=== PATIENT | female | born 1970 | race American Indian/Alaskan Native ===

== ENCOUNTER 2016-12-30 12:37 | Emergency (ER) | payer MEDICAID ==
[2016-12-30] MEDS ORDERED: NACL 0.9% 1000 ML 1,000 ML IV ONE (16:34)
[2016-12-30] MEDS ORDERED: BENADRYL IV ONE (16:34)
[2016-12-30] MEDS ORDERED: PERCOCET 5/325 PO ONE (16:34)
[2016-12-30] MEDS ORDERED: REGLAN IV ONE (16:34)
--- NOTE | 2016-12-30 16:40 | Emergency Department Report ---
ED Headache HPI - General Chief Complaint: Headache Stated Complaint: HEADACHE Time Seen by Provider: 12/30/16 16:09 Source: patient Exam Limitations: no limitations - History of Present Illness Initial Comments: Patient is a 46-year-old female with a history of morbid obesity, hypertension, and asthma. Patient presents to the ER complaining of the worst headache of her life, 10 out of 10 pain, occurring in the frontal area of her head with radiation to the back. He also reports hypertension patient takes lisinopril and amlodipine daily, patient has not missed any doses. Associated photophobia and nausea. She denies any history of migraines. Otherwise no fevers, chills, nausea, vomiting, chest pain, shortness of breath, abdominal pain, trauma, falls , sick contacts, or travel. Allergies/Adverse Reactions: Allergies Penicillins Allergy (Verified 07/09/16 07:32) Unknown Home Medications: Ambulatory Orders ALBUTEROL Inhaler [ProAir HFA Inhaler] 1 puff INHALATION PRN PRN 03/01/14 Cetirizine HCl [ZyrTEC] 10 mg PO DAILY 03/01/14 Cholecalciferol (Vitamin D3) [Vitamin D3] 10,000 unit PO 1XW 03/01/14 Lisinopril/Hydrochlorothiazide [Zestoretic 20-12.5 mg] 1 tab PO DAILY 03/01/14 amLODIPine [Norvasc] 5 mg PO DAILY 03/01/14 Fluticasone/Salmeterol [Advair Diskus 250-50 mcg] 1 inh INHALATION BID 01/06/15 Cyclobenzaprine [Flexeril 10 MG TAB] 10 mg PO Q8H PRN #21 tablet 04/08/15 Lisinopril/Hydrochlorothiazide [Zestoretic 20-25 mg] 1 each PO QDAY #30 tablet 04/08/15 amLODIPine [Norvasc] 10 mg PO DAILY #30 tab 04/08/15 Colchicine 0.6 mg PO ONCE #3 tablet 12/31/15 HYDROcodone/APAP 5-325 [Catron 5/325] 1 each PO Q6HR PRN #12 tablet 12/31/15 Ibuprofen [Motrin] 800 mg PO Q8HR PRN #15 tablet 07/09/16 ED Review of Systems ROS: Stated complaint: HEADACHE Other details as noted in HPI Comment: All other systems reviewed and negative ED Past Medical Hx - Past Medical History Hx Hypertension: Yes Hx Congestive Heart Failure: Yes Hx Arthritis: Yes Hx Asthma: Yes Hx COPD: No Hx HIV: No Additional medical history: Obesity - Surgical History Additional Surgical History: lap band, trigger finger repair,carpal tunnel - Social History Smoking Status: Never Smoker Substance Use Type: None - Medications Home Medications: Home Medications Medication Instructions Recorded Confirmed Last Taken Type ALBUTEROL Inhaler [ProAir HFA 1 puff INHALATION PRN PRN 03/01/14 04/07/15 History Inhaler] Cetirizine HCl [ZyrTEC] 10 mg PO DAILY 03/01/14 04/07/15 12/17/14 History Cholecalciferol (Vitamin D3) 10,000 unit PO 1XW 03/01/14 04/07/15 12/17/14 History [Vitamin D3] Lisinopril/Hydrochlorothiazide 1 tab PO DAILY 03/01/14 04/07/15 04/07/15 10:00 History [Zestoretic 20-12.5 mg] amLODIPine [Norvasc] 5 mg PO DAILY 03/01/14 04/07/15 04/07/15 10:00 History Fluticasone/Salmeterol [Advair 1 inh INHALATION BID 01/06/15 04/07/15 12/30/14 History Diskus 250-50 mcg] Cyclobenzaprine [Flexeril 10 MG 10 mg PO Q8H PRN #21 tablet 04/08/15 Unknown Rx TAB] Lisinopril/Hydrochlorothiazide 1 each PO QDAY #30 tablet 04/08/15 Unknown Rx [Zestoretic 20-25 mg] amLODIPine [Norvasc] 10 mg PO DAILY #30 tab 04/08/15 Unknown Rx Colchicine 0.6 mg PO ONCE #3 tablet 12/31/15 Unknown Rx HYDROcodone/APAP 5-325 [Catron 1 each PO Q6HR PRN #12 tablet 12/31/15 Unknown Rx 5/325] Ibuprofen [Motrin] 800 mg PO Q8HR PRN #15 tablet 07/09/16 Unknown Rx ED Physical Exam - General Limitations: No Limitations General appearance: alert, in no apparent distress - Head Head exam: Present: atraumatic, normocephalic - Eye Eye exam: Present: normal appearance, PERRL, EOMI. Absent: conjunctival injection, nystagmus Pupils: Present: normal accommodation. Absent: unequal - ENT ENT exam: Present: mucous membranes moist - Neck Neck exam: Present: normal inspection, tenderness (left paracervical ), other ( No meningeal signs) - Respiratory Respiratory exam: Present: normal lung sounds bilaterally. Absent: respiratory distress - Cardiovascular Cardiovascular Exam: Present: regular rate, normal rhythm. Absent: systolic murmur, diastolic murmur, rubs, gallop - GI/Abdominal GI/Abdominal exam: Present: soft, normal bowel sounds - Back Exam Back exam: Present: normal inspection - Neurological Exam Neurological exam: Present: alert, oriented X3, other (negative kernig and brudzinski) - Psychiatric Psychiatric exam: Present: normal affect, normal mood - Skin Skin exam: Present: warm, dry, intact, normal color. Absent: rash ED Course Vital Signs 12/30/16 12/30/16 12/30/16 12:44 14:31 14:35 Temperature 100.7 F H Pulse Rate 128 H 107 H Respiratory 24 26 H Rate Blood Pressure 228/120 Blood Pressure 198/117 [Right] O2 Sat by Pulse 98 96 96 Oximetry 12/30/16 12/30/16 12/30/16 15:24 17:00 18:00 Temperature Pulse Rate 81 104 H 92 H Respiratory 20 18 18 Rate Blood Pressure Blood Pressure 153/96 183/105 171/53 [Right] O2 Sat by Pulse 100 99 96 Oximetry 12/30/16 12/30/16 12/30/16 19:00 20:00 21:00 Temperature Pulse Rate 75 81 87 Respiratory 18 20 24 Rate Blood Pressure Blood Pressure 174/84 146/83 195/86 [Right] O2 Sat by Pulse 96 100 98 Oximetry 12/30/16 21:30 Temperature 100.1 F H Pulse Rate 84 Respiratory 18 Rate Blood Pressure Blood Pressure 171/93 [Right] O2 Sat by Pulse 100 Oximetry ED Medical Decision Making - Lab Data Result diagrams: 12/30/16 16:51 12/30/16 16:51 - EKG Data -: EKG Interpreted by Ri EKG shows normal: axis (normal), intervals (normal), QRS complexes (normal), ST- T waves (No ST/T changes, no STEMI) Rate: tachycardia - Medical Decision Making Patient reevaluated after medications 2 tabs of percocet, reglan, benadryl, and IV fluids patient reports no improvement. her BP is now 171/91,. Pt is still reporting a frontal SMALL and fever of 100.1. Pt is approximately 500 lbs and cannot use the CT scanner here due to her habitus. If patient requires a lumbar puncture I will not be able to perfome the procedure due to her habitus. Pt given dilaudid 1mg, valium 5mg without relief Pt attempted to ambulate, patient has unsteady gait due to dizziness Case discussed with Dr Urban, ER attending at [facility] at 0015. Will accept ER to ER transfer where she will be able to receive a CT and further imaging and procedures if warranted. Critical care attestation.: If time is entered above; I have spent that time in minutes in the direct care of this critically ill patient, excluding procedure time. ED Disposition Clinical Impression: Headache, Hypertension, Dizziness, Gait instability Disposition: DC/TX ANOTHER TYPE HEALTHCARE Is pt being admited?: No Does the pt Need Aspirin: No Condition: Serious Additional Instructions: Pt to be transferred to [facility]
[2016-12-30 17:12] LABS: Eosinophils % (Auto) 0.1 % (0.0-4.3); Hematocrit 44.2 % (30.3-42.9); Hemoglobin 14.7 gm/dl (10.1-14.3); Mean Corpuscular HGB Conc 33 % (30-34); Mean Corpuscular Volume 76 fl (79-97); Platelet Count 346 K/mm3 (140-440); Red Blood Count 5.84 M/mm3 (3.65-5.03); Red Cell Distribution Width 14.3 % (13.2-15.2); White Blood Count 11.3 K/mm3 (4.5-11.0)
[2016-12-30 17:19] LABS: Mean Corpuscular Hemoglobin 25 pg (28-32)
[2016-12-30 17:21] LABS: INR 0.87 (0.87-1.13)
[2016-12-30 17:22] LABS: BUN/Creatinine Ratio 12.5; Calcium 9.7 mg/dL (8.4-10.2); Chloride 94.6 mmol/L (98-107); Potassium 4.1 mmol/L (3.6-5.0)
[2016-12-30 17:23] LABS: Partial Thromboplastin Time 39.5 Sec. (24.2-36.6)
[2016-12-30 18:10] LABS: Bilirubin,Urine NEG (Negative); Blood,Urine NEG (Negative); Ketones,Urine NEG (Negative); Leukocyte Esterase,Urine SM (Negative); Mucus,Urine FEW /HPF; Nitrite,Urine NEG (Negative); Protein,Urine <15 mg/dL mg/dL (Negative); Urobilinogen,Urine < 2.0 mg/dL (<2.0)
[2016-12-30] MEDS ORDERED: NORMODYNE IV ONE ×2 (21:01→21:21)
[2016-12-30] MEDS ORDERED: DILAUDID IV ONE (21:56)
[2016-12-30] MEDS ORDERED: VALIUM IV ONE (21:57)
[2016-12-30] MEDS ORDERED: ZOFRAN ONE (22:52)
[2016-12-30] MEDS ORDERED: ZOFRAN IV ONE (23:04)
[2016-12-31 01:49] VITALS: BP 178/91
== END 2016-12-31 01:50 | disposition other institution (70) ==
LOC: ED 12:37
DX: R51 Headache (principal); I10 Essential (primary) hypertension; R42 Dizziness and giddiness; R26.89 Other abnormalities of gait and mobility; I50.9 Heart failure, unspecified; J45.909 Unspecified asthma, uncomplicated; M19.90 Unspecified osteoarthritis, unspecified site; E66.9 Obesity, unspecified; Z88.0 Allergy status to penicillin
CPT/HCPCS: 36415; 80048; 81001; 81025; 85025; 85610; 85730; 93005; 93010; 96361; 96374; 96375; 99285; J1170; J1200; J2405; J2765; J3360; J7030

== ENCOUNTER 2017-01-24 08:38 | Outpatient (CLI) | payer MEDICAID ==
--- NOTE | 2017-01-24 10:48 | Fluoroscopy Report ---
Upper GI series: Dyspepsia. Large patient with gastric band. No recent weight loss. AP images demonstrate normal angle of 37.6degree for the gastric band. Images of the esophagus are unremarkable. No hiatus hernia noted. There is rapid drainage of contrast through the gastric band with minimal narrowing. Images of the stomach are grossly unremarkable. There is normal passage into the duodenum. There is limited visualization of the duodenum. No reflux identified with water swallowing. The examination was limited due to the patient's large size. Only fluoroscopic images were obtained. Impressions: 1. Normal gastric band positioning. Relatively open passage through the band. 2. No hiatus hernia or reflux.
== END 2017-01-24 08:39 | disposition home or self-care (01) ==
LOC: FLUORO 08:38
PROVIDERS: ATTEND Specialist
DX: K30 Functional dyspepsia (principal)
CPT/HCPCS: 74247